=== PATIENT | male | born 1980 | race Caucasian/White ===

== ENCOUNTER → 2021-01-31 | Outpatient (CLI) | payer OTHER ==
--- NOTE | 2021-01-31 16:05 | RAD ---
MR LUMBAR SPINE WO [id number] History: Reason: CHRONIC LOW BACK PAIN / Spl. Instructions: / History: Technique: Multiplanar, multi sequential MR imaging was performed of the lumbar spine. Comparison: None Findings: Normal vertebral body height and alignment. No fracture. Conus terminates at the normal location. No evidence of nerve root clumping. L1-L2: Small disc bulge. Mild facet arthropathy. No canal or neuroforaminal narrowing. L2-L3: Small disc bulge. Mild facet arthropathy. Mild subarticular recess narrowing. No canal narrow ing. No neuroforaminal narrowing. L3-L4: Broad-based disc bulge. Superimposed right foraminal disc protrusion. Moderate facet arthropa thy. Mild canal narrowing. Subarticular recess narrowing with slight abutment of descending L4 nerve roots.. Ligament of flavum thickening. Moderate right and mild to moderate left neuroforaminal narrow ing. L4-L5: Broad-based disc bulge with central disc protrusion. Moderate facet arthropathy. Moderate can al narrowing. Subarticular recess. Abutment of the descending L5 nerve roots. Mild to moderate bilate ral neuroforaminal narrowing. L5-S1: Small disc bulge. Moderate facet arthropathy. No canal narrowing. Mild subarticular recess na rrowing. Mild bilateral neuroforaminal narrowing. Impression: 1. Multilevel lumbar spondylosis most prominent L3-L4 and L4-5. 2. L4-5 moderate canal narrowing with subarticular recess narrowing and abutment of descending L5 ne rve roots. Correlate for radiculopathy. 3. Mild L3-L4 canal narrowing. 4. Neuroforaminal narrowing most prominent L4-5. Electronically signed by: Yony Oliver DO (01/31/2021 4:03 PM) [id number]
== END ==
LOC: MRI 10:51
PROVIDERS: ATTEND Family Medicine
DX: M47.817 Spondylosis without myelopathy or radiculopathy, lumbosacral region (principal); M48.07 Spinal stenosis, lumbosacral region
CPT/HCPCS: 72148